=== PATIENT | male | born 1970 | race Two or more races ===

== ENCOUNTER → 2023-03-16 | Day surgery (SDC) | payer OTHER ==
[~2023-03-16] VITALS: Ht 175.3 cm; Wt 81.6 kg
[~2023-03-16] MED LIST: BUPIVACAINE 0.5% P/F INJ 10 ML VIAL ONE; DexAMETHasone SOD PHOS 10MG/1ML VIAL INJ ONE; FLUMAZENIL 0.1 MG/ML INJ 10ML MDV IV PRN; GLYCOPYRROLATE 0.2 MG/ML 1ML VIAL ONE; HEPARIN SODIUM (PORCINE) 5000 UNITS/ML 1ML VIAL ONE; HYDROmorphone HCL 2 MG/ML VL/or syr IV PRN; KETOROLAC TROMETH 30 MG/ML 1ML VIAL ONE; LABETALOL HCL 5 MG/ML 4ML SYRINGE IV PRN; LIDOCAINE 1% HCL (LOCAL ANESTH.) INJ 20ML MDV ONE; LIDOCAINE 2% (LOCAL ANESTH.) PF 5ml SDV ONE; NALOXONE HCL 0.4 MG/ML VIAL IV PRN; ONDANSETRON HCL 4 MG/2 ML VIAL IV PRN; ONDANSETRON HCL 4 MG/2 ML VIAL ONE; PROPOFOL 10 MG/ML 20 ML IV ONE; ceFAZolin 1GM/50ML 100 ML IV ONE; ePHEDrine SULFATE 50 MG/ML AMP IV PRN; fentaNYL CITRATE 100 MCG/2 ML VL IV PRN; hydrALAZINE HCL 20 MG/ML VL IV PRN; oxyCODONE HCL 5MG TAB PO PRN
[2023-03-16 08:28] VITALS: TEMP 96.6
[2023-03-16 09:48] VITALS: BP 145/89; PULSE 48; RESP 19; O2SAT 99
== END | disposition home or self-care (01) ==
LOC: SUR 06:05 → EEVIPCON 07:00
DX: K43.6 Other and unspecified ventral hernia with obstruction, without gangrene (principal); Z87.891 Personal history of nicotine dependence
CPT/HCPCS: 49592; J0690; J1100; J1170; J1644; J1885; J2001; J2405; J2704; J3490